=== PATIENT | female | born 1930 | race Caucasian/White ===

== ENCOUNTER 2017-12-04 20:01 | Emergency (ER) | payer MEDICARE, OTHER ==
[~2017-12-04] VITALS: Ht 154.9 cm; Wt 67.6 kg
--- NOTE | 2017-12-04 21:37 | Diagnostic Imaging Report ---
History:Fall Comparison studies: None Technique: Axial images were obtained from the skull base to the vertex. Coronal and sagittal images reconstructed from the axial data. Intravenous contrast: None Findings: Scalp/skull: No abnormalities. Extra-axial spaces: No masses. No fluid collections. Brain sulci: Mildly prominent. Ventricles: Mild compensatory dilatation. No hydrocephalus. Parenchyma: Ill defined confluent hypodensities in the supratentorial white matter are small vessel ischemic changes. No masses, hemorrhage, acute or chronic cortical vascular insults. Sellar/suprasellar region: No abnormalities. Craniocervical junction: Patent foramen magnum. No Chiari one malformation. Incidental findings: Subtle atherosclerotic calcifications in the carotid siphons and right vertebral artery. Artificial lenses in place Impression: No acute abnormalities. Chronic findings: 1. Mild generalized volume loss. 2. Moderate supratentorial white matter small vessel ischemic changes. Signed by: Dr. Joaquin Bernal M.D. on 12/04/2017 9:34 PM
--- NOTE | 2017-12-04 21:45 | Diagnostic Imaging Report ---
History: Fall Comparison studies: None Technique: Axial images were obtained through the cervical region.. Coronal and sagittal images reconstructed from the axial data.. Intravenous contrast: None Findings: Fractures: None. Soft tissues: No gross abnormalities. Atlantoaxial articulation: Mildly degenerated Alignment: Reversal of the usual lordosis centered at C5. Mild retrolisthesis of C4 on C5 is associated with 3 mm anterolisthesis of C3 on C4 and 2 mm of C7 on T1 No scoliosis. Cervicomedullary junction: No abnormalities. The foramen magnum is patent. Vertebrae: No infection or neoplasm. Degenerative changes: Severely degenerated and partially fused disc spaces from C3 to C7. Mildly degenerated at T1-T2. The facets are degenerated throughout the cervical region and fused from C2 to C5 bilaterally. Degenerative spinal canal stenosis, severe at C2-3, moderate, from C3 to C5 and severe at C5-6 and C6-7 due to disc osteophyte complexes. Foraminal stenosis is mild left at C2-3, severe at C3-4, right at C4-5, bilaterally at C5-6 and mild bilaterally at C6-7 due to facet and uncovertebral arthrosis. Incidental atherosclerotic calcifications in the carotid bulbs. IMPRESSION: 1. No acute abnormalities. No fractures. 2. Cannot adequately evaluate for ligament, spinal cord and or vascular abnormalities. 3. Extensive degenerative changes throughout the cervical region result in spinal canal and foraminal stenosis. Worst canal stenosis is severe at C2-3 and from C5 to C7. Superimposed foraminal stenosis is significant from C3 to C6. Signed by: Dr. Joaquin Bernal M.D. on 12/04/2017 9:41 PM
--- NOTE | 2017-12-04 22:09 | Diagnostic Imaging Report ---
EXAM: HIP RIGHT 2-3 VW (+/- PELVIS) INDICATION: Fall, right hip pain COMPARISON: None FINDINGS: BONES: No acute fractures. JOINTS: No malalignment. Mild degenerative changes of the sacroiliac joints and pubic symphysis and hips. SOFT TISSUES: Regional vascular calcifications IMPRESSION: No evidence of a pelvic or right hip fracture. Signed by: Dr. Lila Martines M.D. on 12/04/2017 10:06 PM
--- NOTE | 2017-12-04 22:20 | Diagnostic Imaging Report ---
EXAM: SHOULDER RIGHT COMPLETE, AP internal and external rotation INDICATION: Fall, right shoulder pain COMPARISON: None FINDINGS: BONES: Chronic deformity of the right humeral head. JOINTS: Degenerative changes of the acromioclavicular and glenohumeral joint. SOFT TISSUES: Normal IMPRESSION: No evidence of an acute right shoulder fracture. Signed by: Dr. Lila Martines M.D. on 12/04/2017 10:16 PM
== END 2017-12-04 23:57 | disposition home or self-care (01) ==
LOC: ER 20:01
DX: S00.83XA Contusion of other part of head, initial encounter (principal); M25.511 Pain in right shoulder; S70.01XA Contusion of right hip, initial encounter; W01.0XXA Fall on same level from slipping, tripping and stumbling without subsequent striking against object, initial encounter; Y93.01 Activity, walking, marching and hiking; Y92.128 Other place in nursing home as the place of occurrence of the external cause; I10 Essential (primary) hypertension; E78.5 Hyperlipidemia, unspecified; K21.9 Gastro-esophageal reflux disease without esophagitis; F41.9 Anxiety disorder, unspecified
CPT/HCPCS: 70450; 72125; 99284

== ENCOUNTER 2018-03-10 22:22 | Emergency (ER) | payer MEDICARE ==
[~2018-03-10] VITALS: Ht 154.9 cm; Wt 67.6 kg
--- OUTSIDE RECORDS SUMMARY | 2018-03-10 22:25 | XMS REPORT | Clinical Summary ---
Author Author [facility] Organization [facility] Address Unknown Phone Unavailable Care Team Providers Care Childcare Attendant Name Role Phone Cipriano Ricci MD PCP Allergies Comments Active Allergy Reactions Severity Noted Date Sulfamethoxazole-Trimetho Rash Low 01/15/2017 prim Medications End Date Status Medication Sig Dispensed Refills Start Date Active clonIDINE (CATAPRES-TTS) Place 1 patch 0 0.2 mg/24 hr on the skin once a week. Active clonIDINE HCl (CATAPRES) Take 0.2 mg 0 0.2 MG tablet by mouth 2 (two) times a day as needed for high blood pressure. Active hydroxyurea (HYDREA) 500 Take by mouth 0 mg capsule 2 (two) times a day. Active furosemide (LASIX) 20 mg Take 20 mg by 0 tablet mouth daily. Active potassium chloride Take 8 mEq by 0 (K-DUR,KLOR-CON) 10 MEQ mouth daily. CR tablet Active metoprolol tartrate Take 50 mg by 0 (LOPRESSOR) 50 mg tablet mouth 2 (two) times a day. Active felodipine (PLENDIL) 10 Take 10 mg by 0 MG 24 hr tablet mouth 2 (two) times a day. Active simvastatin (ZOCOR) 40 MG Take 40 mg by 0 tablet mouth nightly. Active omeprazole (PriLOSEC) 20 Take 20 mg by 0 MG capsule mouth daily. Active gabapentin (NEURONTIN) Take 300 mg 0 300 mg capsule by mouth 3 (three) times a day. Active acetaminophen-codeine Take 1 tablet 0 (TYLENOL WITH CODEINE #3) by mouth 3 300-30 mg per tablet (three) times a day as needed for moderate pain. Active Problems Problem Noted Date Ankle cellulitis 01/16/2017 Encounters Care Team Description Date Type Specialty Qasim Smith MD Non-pressure chronic ulcer of left ankle with fat layer exposed; Cellulitis of left foot 05/04/2017 Hospital Radiology Encounter after 03/09/2017 Social History Date Tobacco Use Types Packs/Day Years Used Never Smoker Alcohol Use Drinks/Week oz/Week Comments No Sex Assigned at Date Recorded Not on file Industry Job Start Date Occupation Not on file Not on file Not on file Travel End Travel History Travel Start No recent travel history available. 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 No visible fracture. [id number] Procedure Note Hm Interface, Radiology Results Incoming - 05/04/2017 10:04 AM TYPEWRITER ASSEMBLY AND PARTS INSPECTOR EXAMINATION: XR ANKLE 3 VW LEFT INDICATION: L97.322 Non-pressure chronic ulcer of left ankle with fat layer exposed, L03.116 Cellulitis of left lower limb COMPARISON: 01/15/2017 IMPRESSION: Marked circumferential soft tissue swelling of the ankle without evidence of visible osseous destruction to suggest underlying osteomyelitis. 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 No visible fracture. [id number] Performing Organization Address City/State/Zipcode Phone Number [facility] [address] [place] [address] after 03/09/2017 Insurance Payer Benefit Subscriber ID Type Phone Address Plan / Group MEDICARE MEDICARE xxxxxxxxxx Medicare [place], [place] PART A AND B [employer] xxxxxxxxx HMO [facility] MEDICAID MEDICAID xxxxxxxxx Medicaid
--- OUTSIDE RECORDS SUMMARY | 2018-03-10 22:25 | XMS REPORT ---
Author [facility] Address Unknown Phone Unavailable Care Team Providers Care Activity Director Name Role Phone Ronel SMITH Unavailable Unavailable Problems This patient has no known problems. Allergies, Adverse Reactions, Alerts This patient has no known allergies or adverse reactions. Medications This patient has no known medications. Results Test Description Test Time Test Comments Text Results Atomic Results Result Comments SHOULDER RIGHT COMPLETE 2017-12-04 22:06:00 [place] [address] Patient Name: ANTHONY GUIDRY MR #: [id number] : 1930 Age/Sex: 87/F Req #: [id number] Adm Physician: Ordered by: ROLAND ODONNELL MAILING MACHINE HELPER Report #: [id number] Location: ER Room/Bed: Procedure: [id number] DX/SHOULDER RIGHT COMPLETE Exam Date: Exam Time: REPORT STATUS: Signed EXAM: SHOULDER RIGHT COMPLETE, AP internal and external rotation INDICATION: Fall, right shoulder pain COMPARISON: None FINDINGS: BONES: Chronic deformity of the right humeral head. JOINTS: Degenerative changes of the acromioclavicular and glenohumeral joint. SOFT TISSUES: Normal IMPRESSION: No evidence of an acute right shoulder fracture. Signed by: Dr. Raphael Martines M.D. on 12/04/2017 10:16 PM Dictated By: RAPHAEL MARTINES MD 15 Transcribed By: LUCIANO on 12/04/172215 COPY TO: ROLAND ODONNELL NP HIP RIGHT 2-3 VW (+/- PELVIS) 2017-12-04 22:04:00 [place] [address] Patient Name: ANTHONY GUIDRY MR #: [id number] : 1930 Age/Sex: 87/F Req #: [id number] Adm Physician: Ordered by: ROLAND ODONNELL NP Report #: [id number] Location: ER Room/Bed: Procedure: [id number] DX/HIP RIGHT 2-3 VW (+/- PELVIS) Exam Date: Exam Time: REPORT STATUS: Signed EXAM: HIP RIGHT 2-3 VW (+/- PELVIS) INDICATION: Fall, right hip pain COMPARISON: None FINDINGS: BONES: No acute fractures. JOINTS: No malalignment. Mild degenerative changes of the sacroiliac joints and pubic symphysis and hips. SOFT TISSUES: Regional vascular calcifications IMPRESSION: No evidence of a pelvic or right hip fracture. Signed by: Dr. Raphael Martines M.D. on 12/04/2017 10:06 PM Dictated By: RAPHAEL MARTINES MD 05 Transcribed By: LUCIANO on 12/04/172205 COPY TO: ROLAND ODONNELL NP CT CERVICAL SPINE WO 2017-12-04 21:34:00 [place] [address] Patient Name: ANTHONY GUIDRY MR #: [id number] : 1930 Age/Sex: 87/F Req #: [id number] [facility] Physician: Ordered by: ROLAND ODONNELL NP Report #: [id number] Location: ER Room/Bed: Procedure: [id number] CT/CT CERVICAL SPINE WO Exam Date: 12/04/17 Exam Time: 2114 REPORT STATUS: Signed ADDENDUM #1 Dose modulation, iterative reconstruction, and/or weight based adjustment of the mA/kV was utilized to reduce the radiation dose to as low as reasonably achievable. Signed by: Dr. Joaquin Bernal M.D. on 12/19/2017 9:37 AM ORIGINAL REPORT History: Fall Comparison studies: None Technique: Axial images were obtained through the cervical region.. Coronal and sagittal images reconstructed from the axial data.. Intravenous contrast: None Findings: Fractures: None. Soft tissues: No gross abnormalities. Atlantoaxial articulation: Mildly degenerated Alignment: Reversal of the usual lordosis centered at C5. Mild retrolisthesis of C4 on C5 is associated with 3 mm anterolisthesis of C3 on C4 and 2 mm of C7 on T1 No scoliosis. Cervicomedullary junction: No abnormalities. The foramen magnum is patent. Vertebrae: No infection or neoplasm. Degenerative changes: Severely degenerated and partially fused disc spaces from C3 to C7. Mildly degenerated at T1-T2. The facets are degenerated throughout the cervical region and fused from C2 to C5 bilaterally. Degenerative spinal canal stenosis, severe at C2- 3, moderate, from C3 to C5 and severe at C5-6 and C6-7 due to disc osteophyte complexes. Foraminal stenosis is mild left at C2-3, severe at C3-4, right at C4-5, bilaterally at C5-6 and mild bilaterally at C6-7 due to facet and uncovertebral arthrosis. Incidental atherosclerotic calcifications in the carotid bulbs. IMPRESSION: 1. No acute abnormalities. No fractures. 2. Cannot adequately evaluate for ligament, spinal cord and or vascular abnormalities. 3. Extensive degenerative changes throughout the cervical region result in spinal canal and foraminal stenosis. Worst canal stenosis is severe at C2-3 and from C5 to C7. Superimposed foraminal stenosis is significant from C3 to C6. Signed by: Dr. Joaquin Bernal M.D. on 12/04/2017 9:41 PM Dictated By: JOAQUIN BERNAL MD, MD Transcribed By: LUCIANO on 12/04/172140 COPY TO: ROLAND ODONNELL NP CT BRAIN WO 2017-12-04 21:31:00 [place] [address] Patient Name: ANTHONY GUIDRY MR #: [id number] : 1930 Age/Sex: 87/F Req #: [id number] [facility] Physician: Ordered by: ROLAND ODONNELL NP Report #: [id number] Location: Room/Bed: Procedure: [id number] CT/CT BRAIN WO Exam Date: 12/04/17 Exam Time: 2114 REPORT STATUS: Signed ADDENDUM #1 Dose modulation, iterative reconstruction, and/or weight based adjustment of the mA/kV was utilized to reduce the radiation dose to as low as reasonably achievable. Signed by: Dr. Joaquin Bernal M.D. on 12/19/2017 9:37 AM ORIGINAL REPORT History:Fall Comparison studies: None Technique: Axial images were obtained from the skull base to the vertex. Coronal and sagittal images reconstructed from the axial data. Intravenous contrast: None Findings: Scalp/skull: No abnormalities. Extra-axial spaces: No masses. No fluid collections. Brain sulci: Mildly prominent. Ventricles: Mild compensatory dilatation. No hydrocephalus. Parenchyma: Ill defined confluent hypodensities in the supratentorial white matter are small vessel ischemic changes. No masses, hemorrhage, acute or chronic cortical vascular insults. Sellar/suprasellar region: No abnormalities. Craniocervical junction: Patent foramen magnum. No Chiari one malformation. Incidental findings: Subtle atherosclerotic calcifications in the carotid siphons and right vertebral artery. Artificial lenses in place Impression: No acute abnormalities. Chronic findings: 1. Mild generalized volume loss. 2. Moderate supratentorial white matter small vessel ischemic changes. Signed by: Dr. Joaquin Bernal M.D. on 12/04/2017 9:34 PM Dictated By: JOAQUIN BERNAL MD, MD [id number] Transcribed By: LUCIANO on 12/04/17 7689 COPY TO: ROLAND ODONNELL NP
--- NOTE | 2018-03-10 23:28 | Diagnostic Imaging Report ---
EXAMINATION: Head CT without contrast. HISTORY:Status post fall. COMPARISON:CT brain from 12/04/2017. TECHNIQUE: Multidetector axial images were obtained from the foramen magnum to the vertex without contrast. The images were reconstructed using brain and bone algorithms. Thin section brain images were reformatted into coronal and sagittal planes. Dose modulation, iterative reconstruction, and/or weight based adjustment of the mA/kV was utilized to reduce the radiation dose to as low as reasonably achievable. Intravenous contrast: None IMAGE QUALITY: Acceptable. FINDINGS: Skull/scalp: Mild left posterior parietal scalp edema/hematoma. No soft tissue emphysema or radiopaque foreign body. No acute depressed or displaced calvarial fracture. Parenchyma: Nonspecific bilateral frontoparietal confluent periventricular and patchy subcortical white matter hypodensity are likely related to small vessel ischemic changes. No acute hemorrhage, mass or acute major vascular territorial infarct. Arteries: No density suggestive of thrombosis. Atherosclerotic calcification in bilateral carotid siphon. Dural sinuses: No abnormal density suggestive of thrombosis. Ventricles: No hydrocephalus or displacement. Extra-axial spaces: No abnormal density. Brain volume: Normal for age. Craniocervical junction: No mass, Chiari malformation, or basilar invagination. Sella: No mass. Paranasal/mastoid sinuses: Imaged portions unremarkable. IMPRESSION: 1. Mild left posterior parietal scalp edema/hematoma. No acute fracture. 2. No acute posttraumatic intracranial abnormality. Chronic findings: 1. Moderate supratentorial white matter small vessel ischemic changes. 2. Generalized age-related cerebral volume loss. Signed by: Dr. Bisi Roberto M.D. on 03/10/2018 11:24 PM
--- NOTE | 2018-03-10 23:36 | Diagnostic Imaging Report ---
History: Status post fall. Comparison studies: CT cervical spine from 12/04/2017. Technique: Axial images were obtained through the cervical region.. Coronal and sagittal images reconstructed from the axial data. Dose modulation, iterative reconstruction, and/or weight based adjustment of the mA/kV was utilized to reduce the radiation dose to as low as reasonably achievable. Intravenous contrast: None Findings: Fractures: .None Soft tissue injuries: None. Atlantoaxial articulation: Intact. Alignment: Reversal of normal cervical lordosis likely due to degenerative changes. No scoliosis. 1.5 mm grade 1 anterolisthesis at C3-C4, 2 mm grade 1 retrolisthesis at C5-C6 and 1.7 mm anterolisthesis at C7-T1. Cervicomedullary junction: No abnormalities. The foramen magnum is patent. Soft tissues: No abnormalities. Hypodense nodules in bilateral lobes of thyroid gland (measures approximately 6.4 mm on the right and 7 mm on the left). Vertebrae: Osseous fusion of bilateral posterior elements from level C3-C5. No fractures, infection or neoplasm. Degenerative changes: Moderate degenerative changes in the anterior atlantodental joint. C2-C3: Posterior disc osteophyte complex results in mild to moderate to severe canal stenosis. Mild left foraminal stenosis due to facet and uncovertebral arthrosis. C3-C4: Severe degenerative disc disease. Posterior disc osteophyte complex without canal stenosis. Severe right and moderate left foraminal stenosis due to facet and uncovertebral arthrosis. C4-C5: Severe degenerative disc disease. Posterior disc osteophyte complex without canal stenosis. Degenerative endplate changes and subchondral cyst along the inferior endplate of C4. Severe right and moderate left foraminal stenosis due to facet and uncovertebral arthrosis. C5-C6: Severe degenerative disc disease. Posterior disc osteophyte complex results in moderate to severe canal stenosis. Bilateral severe foraminal stenosis due to facet and uncovertebral arthrosis. C6-C7: Severe degenerative disc disease. Posterior disc osteophyte complex results in mild canal stenosis. Moderate right and severe left foraminal stenosis due to facet and uncovertebral arthrosis. C7-T1: Severe left foraminal stenosis due to facet and uncovertebral arthrosis. IMPRESSION: 1. No acute cervical spine fracture. Reversal of normal cervical lordosis is likely due to degenerative changes or muscle spasm. 2. Ligament, spinal cord and or vascular abnormalities cannot be excluded on the basis of this examination. 3. Advanced cervical spondylosis as detailed above. Signed by: Dr. Bisi Roberto M.D. on 03/10/2018 11:33 PM
== END 2018-03-11 00:49 | disposition home or self-care (01) ==
LOC: ER 22:22
DX: S00.83XA Contusion of other part of head, initial encounter (principal); W01.0XXA Fall on same level from slipping, tripping and stumbling without subsequent striking against object, initial encounter; Y92.128 Other place in nursing home as the place of occurrence of the external cause; Z91.81 History of falling; I10 Essential (primary) hypertension; E78.5 Hyperlipidemia, unspecified; F41.9 Anxiety disorder, unspecified; K21.9 Gastro-esophageal reflux disease without esophagitis
CPT/HCPCS: 70450; 72125; 99283

== ENCOUNTER 2018-03-24 14:42 | Inpatient (IN) | payer MEDICARE ==
[~2018-03-24] VITALS: Ht 154.9 cm; Wt 55.1 kg
--- OUTSIDE RECORDS SUMMARY | 2018-03-24 14:46 | XMS REPORT | Clinical Summary ---
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 No visible fracture. [id number] Procedure Note Hm Interface, Radiology Results Incoming - 05/04/2017 10:04 AM AIRLINE LOUNGE RECEPTIONIST EXAMINATION: XR ANKLE 3 VW LEFT INDICATION: L97.322 Non-pressure chronic ulcer of left ankle with fat layer exposed, L03.116 Cellulitis of left lower limb COMPARISON: 01/15/2017 IMPRESSION: Marked circumferential soft tissue swelling of the ankle without evidence of visible osseous destruction to suggest underlying osteomyelitis. 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 No visible fracture. [id number] Performing Organization Address City/State/Zipcode Phone Number [facility] [address] [place] [address] after 03/23/2017 Insurance Payer Benefit Subscriber ID Type Phone Address Plan / Group MEDICARE MEDICARE xxxxxxxxxx Medicare [place], [place] PART A AND B [employer] xxxxxxxxx [facility]
[2018-03-24] MEDS ORDERED: SODIUM CHLORIDE 0.9% 1000ML 1,000 ML IV STA (14:54)
[2018-03-24] MEDS ORDERED: ONDANSETRON HCL INJ 2 MG/ML VIAL IV ONE ×2 (15:00→19:30)
[2018-03-24 15:18] LABS: BASOPHILS % 0.5 % (0.0-1.0); EOSINOPHILS # (AUTO) 0.2 (0.0-0.4); EOSINOPHILS % 2.4 % (0.0-6.0); HEMATOCRIT 30.6 % (34.2-44.1); HEMOGLOBIN 10.7 g/dL (12.0-16.0); LYMPHOCYTES # (AUTO) 0.5 (1.0-3.2); LYMPHOCYTES % 8.8 % (18.0-39.1); MEAN CORPUSCULAR HEMOGLOBIN 40.1 pg (28-32); MEAN CORPUSCULAR VOLUME 114.6 fL (81-99); MONOCYTES # (AUTO) 0.6 (0.2-0.8); NEUTROPHILS # (AUTO) 4.8 (2.1-6.9); NEUTROPHILS % 77.7 % (38.7-80.0); PLATELET COUNT 396 x10e3/uL (140-360); RED BLOOD COUNT 2.67 x10e6/uL (3.6-5.1); RED CELL DISTRIBUTION WIDTH 15.2 % (11.7-14.4)
[2018-03-24 15:36] LABS: ALBUMIN 3.9 g/dL (3.5-5.0); ALBUMIN/GLOBULIN RATIO 1.2 (0.8-2.0); ANION GAP 14.9 mmol/L (8-16); CALCIUM 9.9 mg/dL (8.4-10.2); POTASSIUM 3.9 mmol/L (3.5-5.1)
[2018-03-24 15:42] LABS: CREATINE KINASE MB 2.4 ng/mL (0-5.0)
[2018-03-24 15:59] LABS: BILIRUBIN,URINE NEGATIVE (NEGATIVE); CLARITY,URINE CLEAR (CLEAR); COLOR,URINE YELLOW (YELLOW); KETONES,URINE NEGATIVE (NEGATIVE); LEUKOCYTE ESTERASE ,URINE NEGATIVE (NEGATIVE); NITRITE,URINE NEGATIVE (NEGATIVE); PROTEIN,URINE DIPSTICK NEGATIVE (NEGATIVE); URINE UROBILINOGEN 0.2 mg/dL (0.2 - 1)
--- OUTSIDE RECORDS SUMMARY | 2018-03-24 17:14 | XMS REPORT | Clinical Summary ---
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 No visible fracture. [id number] Procedure Note Hm Interface, Radiology Results Incoming - 05/04/2017 10:04 AM CIVIL ENGINEERING DESIGNER EXAMINATION: XR ANKLE 3 VW LEFT INDICATION: L97.322 Non-pressure chronic ulcer of left ankle with fat layer exposed, L03.116 Cellulitis of left lower limb COMPARISON: 01/15/2017 IMPRESSION: Marked circumferential soft tissue swelling of the ankle without evidence of visible osseous destruction to suggest underlying osteomyelitis. 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 No visible fracture. [id number] Performing Organization Address City/State/Zipcode Phone Number [facility] [address] [place] [address] after 03/23/2017 Insurance Payer Benefit Subscriber ID Type Phone Address Plan / Group MEDICARE MEDICARE xxxxxxxxxx Medicare [place], [place] PART A AND B [employer] xxxxxxxxx [facility]
--- NOTE | 2018-03-24 17:55 | Diagnostic Imaging Report ---
Exam: Head CT without contrast History: Nausea, vomiting, confusion Comparison studies: Head CT of 03/10/2018 and 12/04/2017. Technique: Axial images were obtained from the skull base to the vertex. Coronal and sagittal images reconstructed from the axial data. Dose modulation, iterative reconstruction, and/or weight based adjustment of the mA/kV was utilized to reduce the radiation dose to as low as reasonably achievable. Radiation dose: Total DLP: 947 mGy*cm. Estimated effective dose: DLP x 0.015 Intravenous contrast: None Findings: Scalp: No abnormalities. Bones: No fractures, blastic or lytic lesions. Brain sulci: Mildly prominent. Ventricles: Compensatory dilatation. No hydrocephalus. Extra-axial spaces: No masses, no fluid collection. Parenchyma: No mass, acute hemorrhage or acute or chronic cortical vascular insults. Ill-defined and confluent hypodensities in the supratentorial white matter are nonspecific but most compatible with chronic microvascular ischemic changes. Sellar/suprasellar region: No abnormalities. Craniocervical junction: Patent foramen magnum. No Chiari one malformation. Incidental findings: Intraocular lens replacement for previous cataract surgery Atherosclerotic calcifications in the carotid siphons and intradural vertebral arteries. IMPRESSION: 1. No acute intracranial abnormalities. 2. Left parietal scalp swelling has decreased. 3. No other changes from the previous head CT of 03/10/2018. 4. Mild generalized volume loss with moderate chronic microvascular ischemic changes. Signed by: Dr. Demario Zamorano M.D. on 03/24/2018 5:52 PM
[2018-03-24] MEDS: SODIUM CHLORIDE 0.9% 1000ML 1,000 ML IV SCH (17:59)
--- NOTE | 2018-03-24 18:45 | Diagnostic Imaging Report ---
EXAM: CT Abdomen and Pelvis WITH contrast INDICATION: Nausea and vomiting. ^ORDER PLACED BY ^[id number] ^[id number] COMPARISON: None. TECHNIQUE: Abdomen and pelvis were scanned utilizing a multidetector helical scanner from the lung base to the pubic symphysis after administration of IV contrast. Coronal and sagittal reformations were obtained. Dose modulation, iterative reconstruction, and/or weight based adjustment of the mA/kV was utilized to reduce the radiation dose to as low as reasonably achievable. Routine protocol was performed. Scan was performed when during portal venous phase. IV CONTRAST: 100 mL of Isovue-370 ORAL CONTRAST: Water COMPLICATIONS: None RADIATION DOSE: Total DLP: 203.06 mGy*cm Estimated effective dose: (DLP x 0.015 x size factor) mSv CTDIvol has been reviewed. It is below the limits set by the Radiation Protocol Committee (RPC). FINDINGS: LINES and TUBES: Mott catheter. LOWER THORAX: Focal cluster of tiny nodules versus tree-in-bud opacities in right base (Series 2, image 5). HEPATOBILIARY: No focal hepatic lesions. No biliary ductal dilation. GALLBLADDER: No radio-opaque stones or sludge. No wall thickening. SPLEEN: No splenomegaly. PANCREAS: No focal masses or ductal dilatation. ADRENALS: No adrenal nodules KIDNEYS/URETERS: Kidneys enhance symmetrically. No hydronephrosis. Mild cortical thinning of the left kidney. Right renal inferior pole 1.8 cm hypodensity with internal attenuation greater than simple fluid. Additional subcentimeter hypodensities are too small to characterize. No stones. GI TRACT: No abnormal distention, wall thickening, or evidence of bowel obstruction. There are diverticula within the colon without evidence of diverticulitis. Small to moderate size hiatal hernia. Appendix is not clearly visualized. PELVIC ORGANS/BLADDER: Hysterectomy. Bladder is not distended with a Mott catheter in place and intravesical air. LYMPH NODES: No lymphadenopathy. VESSELS: There is severe atherosclerotic disease in the aorta and major arterial branches. Tortuous abdominal aorta. The splenic artery is markedly tortuous and atherosclerotic. PERITONEUM / RETROPERITONEUM: No free air or fluid. BONES: There are degenerative changes in the lumbar spine. Changes. There is grade 1 retrolisthesis of L5 in relation to L4. Loss of L1-L2 disc space. SOFT TISSUES: Unremarkable. IMPRESSION: 1. No definite evidence of acute inflammatory process in the abdomen/pelvis. 2. 1.8 cm right renal inferior pole hypodense lesion, could represent a complex cyst. Recommend further evaluation with nonurgent renal ultrasound. 3. Severe arteriosclerosis. 4. Moderate size hiatal hernia. 5. Few adjacent tiny right base nodules versus tree-in-bud opacities. If clinically indicated, follow-up chest CT can be obtained in 3 months to evaluate for changes. Signed by: Dr. Eric Kitchen MD on 03/24/2018 6:41 PM
[2018-03-24] MEDS ORDERED: FELODIPINE ER10 MG PO (18:50)
[2018-03-24] MEDS ORDERED: TYLENOL # 31 EA PO (18:50)
[2018-03-24] MEDS ORDERED: SIMVASTATIN40 MG PO (18:50)
[2018-03-24] MEDS ORDERED: SERTRALINE HCL50 MG PO (18:50)
[2018-03-24] MEDS ORDERED: ULTRAM 50MG50 MG PO (18:50)
[2018-03-24] MEDS ORDERED: CLONIDINE HCL0.2 MG PO (18:50)
[2018-03-24] MEDS ORDERED: AMLODIPINE BES2.5 MG PO (18:50)
[2018-03-24] MEDS ORDERED: HYDROXYUREA500 MG PO (18:50)
[2018-03-24] MEDS ORDERED: FUROSEMIDE40 MG PO (18:50)
[2018-03-24] MEDS ORDERED: ALPRAZOLAM0.5 MG PO (18:50)
[2018-03-24] MEDS ORDERED: HYDRALAZINE HCL25 MG PO (18:50)
[2018-03-24] MEDS ORDERED: QUETIAPINE FUMA25 MG PO (18:50)
[2018-03-24] MEDS ORDERED: LOW DOSE ASPIRI81 MG PO (18:50)
[2018-03-24] MEDS ORDERED: GABAPENTIN300 MG PO (18:50)
[2018-03-24] MEDS: CLONIDINE HCL 0.2 MG TAB PO PRN (19:05)
[2018-03-24] MEDS ORDERED: ONDANSETRON HCL INJ 2 MG/ML VIAL ONE (19:20)
[2018-03-24] MEDS ORDERED: HYDRALAZINE HCL 20 MG/ML VIAL IV ONE (19:30)
[2018-03-24 19:50] VITALS: BP 140/64
[2018-03-24 20:30] VITALS: BP 140/68
[2018-03-24 21:00] VITALS: BP 140/68
[2018-03-24] MEDS ORDERED: SODIUM CHLORIDE 0.9% 50ML 50 ML ONE (22:14)
[2018-03-24] MEDS ORDERED: IOPAMIDOL 370 MG/ML 200 ML INFUS..BTL INJ ONE (22:15)
[2018-03-24] MEDS: ONDANSETRON HCL INJ 2 MG/ML VIAL IV PRN (22:44)
[2018-03-24] MEDS: LORAZEPAM INJ 2 MG/ML VIAL IV PRN (23:14)
[2018-03-25] VITALS (7 sets, daily range): BP systolic 124–175; BP diastolic 58–76
[2018-03-25] MEDS: SODIUM CHLORIDE 0.9% 1000ML 1,000 ML IV SCH ×2 (03:25→13:25)
[2018-03-25 03:26] LABS: CREATINE KINASE MB 1.1 ng/mL (0-5.0)
[2018-03-25 05:59] LABS: BASOPHILS % 0.8 % (0.0-1.0); EOSINOPHILS # (AUTO) 0.1 (0.0-0.4); HEMATOCRIT 25.4 % (34.2-44.1); LYMPHOCYTES # (AUTO) 0.4 (1.0-3.2); LYMPHOCYTES % 9.6 % (18.0-39.1); MEAN CORPUSCULAR HEMOGLOBIN 41.7 pg (28-32); MEAN CORPUSCULAR HGB CONC 35.4 g/dL (31-35); MEAN CORPUSCULAR VOLUME 117.6 fL (81-99); MONOCYTES # (AUTO) 0.4 (0.2-0.8); MONOCYTES % 10.9 % (4.4-11.3); NEUTROPHILS % 76.2 % (38.7-80.0); PLATELET COUNT 318 x10e3/uL (140-360); RED BLOOD COUNT 2.16 x10e6/uL (3.6-5.1)
[2018-03-25 06:19] LABS: ALBUMIN 3.1 g/dL (3.5-5.0); ALBUMIN/GLOBULIN RATIO 1.1 (0.8-2.0); ANION GAP 12.2 mmol/L (8-16); CALCIUM 8.8 mg/dL (8.4-10.2); CREATININE, SERUM 0.89 mg/dL (0.57-1.11); POTASSIUM 3.2 mmol/L (3.5-5.1)
[2018-03-25] MEDS: CLONIDINE HCL 0.2 MG TAB PO PRN (06:19)
[2018-03-25 06:48] LABS: CREATINE KINASE MB 0.9 ng/mL (0-5.0)
[2018-03-25 07:29] LABS: ANISOCYTOSIS MODERATE; EOSINOPHILS % (MANUAL) 2 % (0-7); LYMPHOCYTES % (MANUAL) 11 % (19-48); MONOCYTES % (MANUAL) 8 % (3.4-9.0); NEUTROPHILS % (MANUAL) 79 % (40-74)
[2018-03-25 07:30] LABS: PLATELET ESTIMATE ADEQUATE; PLATELET MORPHOLOGY COMMENT NORMAL; RBC MORPHOLOGY COMMENT ABNORMAL
[2018-03-25] MEDS ORDERED: ACETAMINOPHEN/CODEINE 300MG - 30MG TAB PO PRN (10:00)
[2018-03-25] MEDS ORDERED: ZIPRASIDONE 20 MG VIAL IM PRN (10:00)
[2018-03-25] MEDS ORDERED: ALBUTEROL/IPRATROPIUM 3 ML NEB NEB PRN (10:00)
[2018-03-25] MEDS: AZITHROMYCIN 250MG/NS 100 ML 100 ML IV SCH (11:11)
[2018-03-25 11:44] LABS: FREE THYROXINE INDEX 2.4667 (1.4-3.8); THYROID STIMULATING HORMONE 0.705 uIU/mL (0.350-4.940)
[2018-03-25] MEDS: PIPER-TAZ 3.375 GM 50 ML IV SCH ×2 (12:12→16:57)
[2018-03-25] MEDS: ALBUTEROL/IPRATROPIUM 3 ML NEB NEB SCH ×2 (13:00→18:50)
--- NOTE | 2018-03-25 15:41 | Consultation ---
DATE OF CONSULTATION: March 25, 2018 NEUROLOGY CONSULT NOTE HISTORY OF PRESENT ILLNESS: Ms. Richard is an 87-year-old woman with past medical history significant for hypertension, hyperlipidemia, multiple urinary tract infections and underlying psychiatric disorder, for which she has been hospitalized in inpatient psychiatric facilities twice in her lifetime, and dementia, admitted to [facility] on March 24, 2018 with worsening confusion. When asked why she is here, Ms. Richard reports only that she is here because she has "some issues." According to the patient's family members who are at the bedside, Ms. Richard has been irritable and angry for the past 2 weeks. These mood symptoms coincide with the of her of 75 years approximately 2 weeks ago. For the past week, the patient has been confused. When questioned further, the confusion endorsed by the patient's family is more compatible with paranoid delusions (i.e., someone is coming to take me to residential, the staff at my skilled nursing are trying to put me in the psych hernandez, etc). At baseline, Ms. Richard is oriented to person and place. She is rarely oriented to time. According to her family members, the patient does not have any difficulty recalling the names of family members and close friends. There are, and have been, some problems with misplacement of items and repetition. Ms. Richard is a skilled nursing resident. Therefore, she is not responsible for cleaning, preparing meals, laundering her cloths or linens, etc. The patient no longer drives. She has not driven for approximately 10 years. Ms. Richard reportedly stopped driving after becoming lost in a familiar area. Ms. Richard does not manage her own finances or schedule appointments for herself. These activities are performed by family members. Patient's [id number] does report some difficulty with administering medications. Ms. Richard has a habit of pretending to take her medications, then subsequently hiding them. Ms. Richard was diagnosed with dementia in approximately 2006. She is not now, nor has she ever been, on any medications to treat her dementia. Within the last 1 to 2 weeks, multiple adjustments and additions have been made to the patient's psychotropic medications. According to her family members, the dose of Xanax was recently increased, the dose of Zoloft was recently increased, and the patient was prescribed Seroquel to improve her sleep. REVIEW OF SYSTEMS: Unable to assess secondary to the patient being encephalopathic. PAST MEDICAL HISTORY: Hypertension, hyperlipidemia, arthritis, multiple urinary tract infections, gastroesophageal reflux disease, hiatal hernia, diverticulosis, anxiety disorder, dementia, peripheral vascular disease, possible peripheral neuropathy. PAST SURGICAL HISTORY: Bilateral knee replacements, total hysterectomy, bilateral cataract removal, and appendectomy. PRIOR HOSPITALIZATIONS: Ms. Richard has had 2 emergency center visits within the past year for falls, surgeries/procedures as listed, congestive heart failure and pneumonia in late 2005/early 2006, infection of the left foot/ankle, multiple urinary tract infections, childbirth x3. Ms. Richard has been hospitalized in an inpatient psychiatric facility twice, once in the , and again in 2006. In each instance, she was hospitalized for approximately 3 to 4 weeks. FAMILY MEDICAL HISTORY: The patient's paternal and maternal grandparents are . Their medical histories are unknown. The patient's father is from pneumonia. Her mother is from gastrointestinal cancer. The patient had 3 siblings, all of whom are . One brother had posttraumatic stress disorder. The second brother's medical history is unknown. The patient's sister, who several weeks ago, had a hip fracture and pneumonia. Ms. Richard had 3 children, 2 sons and 1 daughter. One son is from colon cancer. The second son is alive, but has hypertension, hyperlipidemia, gout, and peripheral neuropathy. The patient's daughter is alive and healthy. SOCIAL HISTORY: Ms. Richard is recently . She is a skilled nursing resident. The patient is retired. She does not report current or prior tobacco, alcohol, or recreational drug use. HOME MEDICATIONS 1. Acetaminophen/codeine 1 tablet by mouth twice daily as needed for pain. 2. Alprazolam 0.5 mg by mouth daily as needed for anxiety. 3. Amlodipine besylate 2.5 mg by mouth daily. 4. Aspirin 81 mg by mouth daily. 5. Clonidine 0.02 mg by mouth twice daily as needed. 6. Felodipine 10 mg by mouth daily. 7. Furosemide 40 mg by mouth daily. 8. Gabapentin 300 mg by mouth twice daily. 9. Hydralazine 25 mg by mouth 3 times daily. 10. Hydroxyurea 500 mg by mouth daily. 11. Quetiapine 25 mg by mouth at bedtime daily. 12. Sertraline 50 mg by mouth daily. 13. Simvastatin 40 mg by mouth daily. 14. Tramadol 50 mg by mouth daily as needed for pain. ALLERGIES: BACTRIM. NO KNOWN FOOD ALLERGIES. NO KNOWN ALLERGIES TO LATEX. NO KNOWN ALLERGIES TO IODINE OR OTHER CONTRAST MATERIALS. PHYSICAL EXAMINATION VITAL SIGNS: Height 61 inches, weight 149 pounds, BMI 28.2 kg/m2. Blood pressure 151/70 mmHg, pulse 57 beats per minute, respiratory rate 18 breaths per minute, oxygen saturation 95% on room air. GENERAL: The patient is awake and alert, does not appear distressed. Overweight. HEENT: Normocephalic, atraumatic. Pupils are surgical. Moist mucous membranes. NECK: Supple. No appreciable thyromegaly. No appreciable carotid bruits. CARDIOVASCULAR: S1 and S2, regular rate and rhythm. No murmurs, rubs, or gallops. RESPIRATORY: Clear to auscultation bilaterally. No wheezes, rhonchi, or rales. EXTREMITIES: The skin is warm and dry. No clubbing, cyanosis, or edema. The posterior tibial and dorsalis pedis pulses are 1+ and symmetric. SKIN: There are wounds surrounding the left ankle. NEUROLOGIC: Memory/Attention: The patient is awake and alert, oriented to person, place (hospital, city, county, state), but not time or situation. Cranial Nerves: Cranial nerve I - not tested. Cranial nerve II, III, IV, and - pupils are surgical. Extraocular movements intact. No nystagmus. Cranial nerve V - sensation to light touch is intact in the bilateral V1 through V3 distributions. Strength of the temporalis and masseter muscles is within normal limits. Cranial nerve VII - the face is symmetric as are all facial movements. Strength is within normal limits. Cranial nerve VIII - hearing is intact to finger rub bilaterally. Cranial nerve IX, X - the soft palate elevates equally and symmetrically. Cranial nerve XI - normal strength of the bilateral sternocleidomastoid and trapezius muscles. Cranial nerve XII - the tongue protrudes midline and moves symmetrically from side to side. Strength: Bulk is diminished throughout. There are normal functional movements of both arms and both legs. Strength is grossly 4+to 5/5. Tone is normal. DTRs: Deep tendon reflexes are 1+ and symmetric at the triceps, biceps, brachioradialis, and patellas. Deep tendon reflexes are absent and symmetric at the Achilles. Plantar responses are flexor bilaterally. Sensation: Sensation is intact to light touch in both arms and both legs. Cerebellar: Unable to assess secondary to the patient being encephalopathic. Gait: Deferred. Speech: Spontaneous speech is normal without appreciable dysarthria or aphasia. Repetition is intact. Involuntary Movements: None. Pronator Drift: None. LABORATORY DATA: The patient's most recent comprehensive metabolic panel is significant for a decreased potassium level of 3.2, a decreased total protein level of 5.8, and a decreased albumin of 3.1. Lactic acid 5.9. Creatine kinase 288, 175, 157. CK-MB 2.40, 1.10, 0.90. Troponin-I 0.023, 0.026, 0.026. The CBC with differential and platelets reveals a white blood cell count of 3.96 with 76.2% neutrophils, 9.6% lymphocytes, 10.9% monocytes, 2.0% eosinophils, and 0.8% basophils. The hemoglobin and hematocrit are 9.0 and 25.4, respectively. The platelet count is 318. A urinalysis was unremarkable. Influenza types A, B antigen negative. DIAGNOSTIC STUDIES: Electrocardiogram, 03/24/2018: Normal sinus rhythm at [address] of the brain without contrast, 03/24/2018: On my review, there is no evidence of recent large territorial ischemia, hemorrhage, mass, or mass effect. There is diffuse cerebral atrophy with compensatory dilatation of the ventricles, slightly more than expected for age. There are findings compatible with [id number] chronic small vessel ischemic disease. CT of the abdomen/pelvis, 03/24/2018: 1. No definite evidence of acute inflammatory process in the abdomen/pelvis. 2. A 1.8 cm right renal inferior pole hyperdense lesion, could represent a complex cyst. Recommend further evaluation with nonurgent renal ultrasound. 3. Severe arteriosclerosis. 4. Moderate-sized hiatal hernia. 5. Few adjacent tiny right base nodules versus tree-in-bud opacities. If clinically indicated, followup chest CT can be obtained in 3 months to evaluate for changes. ASSESSMENT AND PLAN: Ms. Richard is an 87-year-old woman with an extensive past medical history, including a prior diagnosis of dementia made approximately 10 years ago, admitted from her skilled nursing with encephalopathy of unknown etiology. On neurological examination, the patient is disoriented to time and situation; however, according to her family members, this is more or less the patient's baseline. Otherwise, there are no focal findings on the patient's neurological examination. Ms. Baker laboratory data and other diagnostic studies have been reviewed and are documented above. Ms. Baker encephalopathy is probably multifactorial. Firstly, the patient has a known diagnosis of dementia. There has been worsening of her baseline confusion, more specifically her paranoid delusions, over the past 2 weeks. Contributing to this worsening the patient's neurological baseline, is possible pneumonia. This is based on the findings on the CT of the abdomen/pelvis and my discussion with primary attending, Dr. Smith. Dr. Smith has prescribed intravenous antibiotics and ordered a CT of the chest for further evaluation for pneumonia. Other possible factors contributing to dose worsening from the patient's neurological baseline is the recent of her and delirium. RECOMMENDATIONS: As follows: 1. Laboratory data will be ordered as follows: Thyroid function test, an ammonia level, vitamin B1 level, vitamin B12 level, rapid plasma reagin, and a urine culture. These labs will be ordered to assess for other possible causes of the patient's worsening encephalopathy. 2. Limit treatment with sedative/hypnotic and pain medications as these will alter the patient's sensorium. To that end, treatment with Tylenol No. 3 has been discontinued. Treatment with tramadol will be continued on an as needed basis. Treatment with gabapentin will be continued, but the dose will be decreased to 100 mg by mouth twice daily. At present, treatment with the patient's current psychotropic medications will be continued. 3. Utilize environmental cues to limit delirium. 4. Defer treatment of the remaining medical comorbidities to the primary and other services following the patient. Thank you for this consultation. I will continue to follow the patient while she remains in the hospital. TIME SPENT: 70 minutes. Job#: [id number] RADHA RAMIREZ
[2018-03-25] MEDS: HYDRALAZINE HCL 25 MG TAB PO SCH ×2 (15:59→22:00)
[2018-03-25] MEDS: GABAPENTIN 300 MG CAP PO SCH (16:56)
[2018-03-25] MEDS ORDERED: GABAPENTIN 300 MG CAP PO SCH (17:00)
--- NOTE | 2018-03-25 20:28 | Diagnostic Imaging Report ---
EXAM: CT CHEST WO INDICATION: Shortness of breath COMPARISON: None TECHNIQUE: Multidetector CT scanning of the chest was performed. Coronal and sagittal multiplanar reformations were obtained. Dose modulation, iterative reconstruction, and/or weight based adjustment of the mA/kV was utilized to reduce the radiation dose to as low as reasonably achievable. Routine protocol performed. IV Contrast: None CTDIvol has been reviewed. It is below the limits set by the Radiation Protocol Committee (RPC). FINDINGS: LUNGS AND AIRWAYS: The trachea and major bronchi are unremarkable. No consolidations or edema. Lobulated 1.2 x 0.8 cm nodule in the right upper lung with adjacent smaller nodules. Additional sites of tiny centrilobular nodules in the periphery of the right upper lung and right lower lobe. Right middle lobe atelectasis. PLEURA: No effusions or pneumothorax. HEART, MEDIASTINUM, VESSELS: The heart is within normal size limits. Calcifications of the coronary artery, aortic annulus and thoracic aorta. No mediastinal mass or lymphadenopathy. UPPER ABDOMEN: No acute findings MUSCULOSKELETAL: Nonspecific contained fluid around the right shoulder, likely bursitis. Similar finding to a lesser extent of the left shoulder. Severe degenerative changes of the thoracolumbar spine with upper lumbar spine and lower thoracic spine fusion. IMPRESSION: Several small focal areas of bronchiolitis in the right upper and right lower lobe, likely infectious bronchiolitis. A dominant nodule with smaller surrounding nodules is in the right upper lung measuring 1.2 x 0.8 cm and should be followed by CT of the chest in 3 months. Signed by: Dr. Lila Martines M.D. on 03/25/2018 8:25 PM
[2018-03-25] MEDS: ONDANSETRON HCL INJ 2 MG/ML VIAL IV PRN (22:01)
[2018-03-25] MEDS: ALPRAZOLAM 0.5 MG TAB PO PRN (22:02)
[2018-03-25] MEDS: SIMVASTATIN 40 MG TAB PO SCH (22:08)
[2018-03-25] MEDS: QUETIAPINE FUMARATE 25 MG TAB PO SCH (22:08)
[2018-03-26] VITALS (8 sets, daily range): BP systolic 117–157; BP diastolic 56–77
[2018-03-26] MEDS: PIPER-TAZ 3.375 GM 50 ML IV SCH ×4 (00:20→17:21)
[2018-03-26] MEDS: ALBUTEROL/IPRATROPIUM 3 ML NEB NEB SCH ×4 (01:00→19:54)
[2018-03-26] MEDS: SODIUM CHLORIDE 0.9% 1000ML 1,000 ML IV SCH ×3 (01:16→17:47)
[2018-03-26] MEDS: TRAMADOL HCL 50 MG TAB PO PRN (05:04)
[2018-03-26] MEDS: GABAPENTIN 300 MG CAP PO SCH ×2 (08:29→16:58)
[2018-03-26] MEDS: HYDRALAZINE HCL 25 MG TAB PO SCH ×3 (08:29→20:34)
[2018-03-26] MEDS: AMLODIPINE BESYLATE 5 MG TAB PO SCH (08:30)
[2018-03-26] MEDS: SERTRALINE HCL 50 MG TAB PO SCH (08:31)
[2018-03-26] MEDS ORDERED: NON-FORMULARY MEDICATION (Felodipine (Felodipine Er) 10 MG) PO SCH (09:00)
[2018-03-26] MEDS: AZITHROMYCIN 250MG/NS 100 ML 100 ML IV SCH (09:54)
[2018-03-26] MEDS: ASPIRIN 81 MG ENTERIC COATED PO SCH (09:55)
[2018-03-26] MEDS: QUETIAPINE FUMARATE 25 MG TAB PO SCH (21:45)
[2018-03-26] MEDS: SIMVASTATIN 40 MG TAB PO SCH (21:45)
[2018-03-26] MEDS: ALPRAZOLAM 0.5 MG TAB PO PRN (21:49)
[2018-03-27] VITALS: BP 134/60
[2018-03-27] MEDS: PIPER-TAZ 3.375 GM 50 ML IV SCH ×3 (00:10→18:50)
[2018-03-27 04:00] VITALS: BP 133/78
[2018-03-27] MEDS: SODIUM CHLORIDE 0.9% 1000ML 1,000 ML IV SCH (05:47)
[2018-03-27] MEDS: TRAMADOL HCL 50 MG TAB PO PRN (06:54)
[2018-03-27] MEDS: ALBUTEROL/IPRATROPIUM 3 ML NEB NEB SCH ×3 (07:00→21:00)
[2018-03-27 08:00] VITALS: BP 153/68
[2018-03-27 08:45] VITALS: BP 153/68
[2018-03-27] MEDS: GABAPENTIN 300 MG CAP PO SCH ×2 (08:45→18:50)
[2018-03-27] MEDS: SERTRALINE HCL 50 MG TAB PO SCH (08:45)
[2018-03-27] MEDS: HYDRALAZINE HCL 25 MG TAB PO SCH ×3 (08:45→20:19)
[2018-03-27] MEDS: ASPIRIN 81 MG ENTERIC COATED PO SCH (08:45)
[2018-03-27] MEDS: AMLODIPINE BESYLATE 5 MG TAB PO SCH (08:45)
[2018-03-27 09:15] LABS: BASOPHILS % 0.6 % (0.0-1.0); EOSINOPHILS # (AUTO) 0.1 (0.0-0.4); EOSINOPHILS % 2.2 % (0.0-6.0); HEMATOCRIT 26.4 % (34.2-44.1); LYMPHOCYTES # (AUTO) 0.4 (1.0-3.2); LYMPHOCYTES % 11.7 % (18.0-39.1); MEAN CORPUSCULAR HEMOGLOBIN 39.8 pg (28-32); MEAN CORPUSCULAR HGB CONC 34.1 g/dL (31-35); MEAN CORPUSCULAR VOLUME 116.8 fL (81-99); MONOCYTES # (AUTO) 0.3 (0.2-0.8); MONOCYTES % 9.8 % (4.4-11.3); NEUTROPHILS # (AUTO) 2.4 (2.1-6.9); NEUTROPHILS % 75.1 % (38.7-80.0); PLATELET COUNT 304 x10e3/uL (140-360); RED BLOOD COUNT 2.26 x10e6/uL (3.6-5.1); RED CELL DISTRIBUTION WIDTH 15.4 % (11.7-14.4)
[2018-03-27] MEDS: ONDANSETRON HCL INJ 2 MG/ML VIAL IV PRN (09:15)
[2018-03-27 09:41] LABS: ANION GAP 10.3 mmol/L (8-16); CALCIUM 8.8 mg/dL (8.4-10.2); CREATININE, SERUM 0.89 mg/dL (0.57-1.11); POTASSIUM 3.3 mmol/L (3.5-5.1)
[2018-03-27] MEDS: AZITHROMYCIN 250MG/NS 100 ML 100 ML IV SCH (10:15)
[2018-03-27] MEDS: ALPRAZOLAM 0.5 MG TAB PO PRN (11:50)
[2018-03-27 16:00] VITALS: BP 147/66
[2018-03-27] MEDS: HYDROXYUREA 500 MG CAPSULE PO SCH (18:50)
[2018-03-27 20:05] VITALS: BP 147/66
[2018-03-27] MEDS: LORAZEPAM INJ 2 MG/ML VIAL IV PRN (20:15)
[2018-03-27] MEDS: QUETIAPINE FUMARATE 25 MG TAB PO SCH (20:19)
[2018-03-27] MEDS: SIMVASTATIN 40 MG TAB PO SCH (20:19)
[2018-03-28] VITALS (7 sets, daily range): BP systolic 129–166; BP diastolic 59–77
[2018-03-28] MEDS: ALBUTEROL/IPRATROPIUM 3 ML NEB NEB SCH ×4 (01:00→19:35)
[2018-03-28] MEDS: PIPER-TAZ 3.375 GM 50 ML IV SCH ×2 (05:38→18:38)
[2018-03-28] MEDS: COLLAGENASE 5 GM TUBE TOP SCH (09:20)
[2018-03-28] MEDS: HYDROXYUREA 500 MG CAPSULE PO SCH ×2 (09:20→17:00)
[2018-03-28] MEDS: AMLODIPINE BESYLATE 5 MG TAB PO SCH (09:20)
[2018-03-28] MEDS: ASPIRIN 81 MG ENTERIC COATED PO SCH (09:20)
[2018-03-28] MEDS: SERTRALINE HCL 50 MG TAB PO SCH (09:20)
[2018-03-28] MEDS: HYDRALAZINE HCL 25 MG TAB PO SCH ×3 (09:20→21:30)
[2018-03-28] MEDS: LORAZEPAM INJ 2 MG/ML VIAL IV PRN ×2 (13:30→21:40)
[2018-03-28] MEDS: GABAPENTIN 100 MG CAP PO SCH (18:38)
[2018-03-28] MEDS: QUETIAPINE FUMARATE 25 MG TAB PO SCH (21:30)
[2018-03-28] MEDS: SIMVASTATIN 40 MG TAB PO SCH (21:30)
[2018-03-28] MEDS: ONDANSETRON HCL INJ 2 MG/ML VIAL IV PRN (21:46)
[2018-03-29] VITALS (7 sets, daily range): BP systolic 127–166; BP diastolic 58–77
[2018-03-29] MEDS: ALBUTEROL/IPRATROPIUM 3 ML NEB NEB SCH ×4 (00:01→19:46)
[2018-03-29] MEDS: PIPER-TAZ 3.375 GM 50 ML IV SCH ×2 (05:51→18:00)
[2018-03-29 05:59] LABS: BASOPHILS % 0.7 % (0.0-1.0); EOSINOPHILS # (AUTO) 0.1 (0.0-0.4); EOSINOPHILS % 2.6 % (0.0-6.0); HEMATOCRIT 24.3 % (34.2-44.1); HEMOGLOBIN 8.4 g/dL (12.0-16.0); LYMPHOCYTES # (AUTO) 0.5 (1.0-3.2); LYMPHOCYTES % 10.4 % (18.0-39.1); MEAN CORPUSCULAR HEMOGLOBIN 39.3 pg (28-32); MEAN CORPUSCULAR HGB CONC 34.6 g/dL (31-35); MEAN CORPUSCULAR VOLUME 113.6 fL (81-99); MONOCYTES # (AUTO) 0.6 (0.2-0.8); NEUTROPHILS # (AUTO) 3.4 (2.1-6.9); NEUTROPHILS % 72.9 % (38.7-80.0); PLATELET COUNT 307 x10e3/uL (140-360); RED BLOOD COUNT 2.14 x10e6/uL (3.6-5.1); RED CELL DISTRIBUTION WIDTH 14.9 % (11.7-14.4)
[2018-03-29 06:17] LABS: ANION GAP 11.9 mmol/L (8-16); BLOOD UREA NITROGEN 9 mg/dL (7-26); BUN/CREATININE RATIO 10 (6-25); CALCIUM 8.9 mg/dL (8.4-10.2); CARBON DIOXIDE 27 mmol/L (22-29); CHLORIDE 101 mmol/L (98-107); CREATININE, SERUM 0.88 mg/dL (0.57-1.11); EST GLOMERULAR FILTRATION RATE > 60 ML/MIN (60-); GLUCOSE 76 mg/dL (74-118); SODIUM 137 mmol/L (136-145)
[2018-03-29 06:33] LABS: POTASSIUM 2.9 mmol/L (3.5-5.1)
[2018-03-29] MEDS: GABAPENTIN 100 MG CAP PO SCH ×2 (08:59→18:00)
[2018-03-29] MEDS: POTASSIUM CHLORIDE 10MEQ EA PO SCH ×2 (08:59→15:11)
[2018-03-29] MEDS: HYDRALAZINE HCL 25 MG TAB PO SCH ×3 (08:59→21:35)
[2018-03-29] MEDS: HYDROXYUREA 500 MG CAPSULE PO SCH ×2 (08:59→18:00)
[2018-03-29] MEDS: SENNOSIDES 8.6 MG TAB PO SCH ×2 (08:59→17:00)
[2018-03-29] MEDS: SERTRALINE HCL 50 MG TAB PO SCH (08:59)
[2018-03-29] MEDS: AMLODIPINE BESYLATE 5 MG TAB PO SCH (08:59)
[2018-03-29] MEDS: AZITHROMYCIN 250 MG TAB PO SCH (08:59)
[2018-03-29] MEDS: CYANOCOBALAMIN INJ 1,000 MCG/ML VIAL IM SCH ×2 (08:59→09:00)
[2018-03-29] MEDS: TRAMADOL HCL 50 MG TAB PO PRN (09:17)
[2018-03-29] MEDS: COLLAGENASE 5 GM TUBE TOP SCH (15:12)
[2018-03-29] MEDS ORDERED: WATER STERILE 10 ML VIAL INJ PRN (17:00)
[2018-03-29] MEDS: SIMVASTATIN 40 MG TAB PO SCH (21:35)
[2018-03-29] MEDS: QUETIAPINE FUMARATE 25 MG TAB PO SCH (21:35)
[2018-03-30] VITALS: BP 161/72
[2018-03-30] MEDS: TRAMADOL HCL 50 MG TAB PO PRN ×2 (00:31→10:46)
[2018-03-30] MEDS: ALBUTEROL/IPRATROPIUM 3 ML NEB NEB SCH ×3 (03:10→14:00)
[2018-03-30 05:15] VITALS: BP 137/64
[2018-03-30 05:41] LABS: BASOPHILS % 0.4 % (0.0-1.0); EOSINOPHILS # (AUTO) 0.2 (0.0-0.4); EOSINOPHILS % 3.5 % (0.0-6.0); HEMATOCRIT 24.8 % (34.2-44.1); HEMOGLOBIN 8.5 g/dL (12.0-16.0); LYMPHOCYTES # (AUTO) 0.6 (1.0-3.2); LYMPHOCYTES % 10.1 % (18.0-39.1); MEAN CORPUSCULAR HEMOGLOBIN 39.2 pg (28-32); MEAN CORPUSCULAR HGB CONC 34.3 g/dL (31-35); MEAN CORPUSCULAR VOLUME 114.3 fL (81-99); MONOCYTES # (AUTO) 0.6 (0.2-0.8); NEUTROPHILS # (AUTO) 4.1 (2.1-6.9); NEUTROPHILS % 74.6 % (38.7-80.0); PLATELET COUNT 301 x10e3/uL (140-360); RED BLOOD COUNT 2.17 x10e6/uL (3.6-5.1)
[2018-03-30 06:03] LABS: MAGNESIUM 2.1 MG/DL (1.3-2.1); PHOSPHORUS 2.6 MG/DL (2.3-4.7)
[2018-03-30] MEDS: PIPER-TAZ 3.375 GM 50 ML IV SCH (06:05)
[2018-03-30 06:35] LABS: ANION GAP 12.5 mmol/L (8-16); BLOOD UREA NITROGEN 8 mg/dL (7-26); BUN/CREATININE RATIO 10 (6-25); CALCIUM 8.6 mg/dL (8.4-10.2); CARBON DIOXIDE 24 mmol/L (22-29); CHLORIDE 104 mmol/L (98-107); CREATININE, SERUM 0.81 mg/dL (0.57-1.11); EST GLOMERULAR FILTRATION RATE > 60 ML/MIN (60-); GLUCOSE 72 mg/dL (74-118); POTASSIUM 4.5 mmol/L (3.5-5.1); SODIUM 136 mmol/L (136-145)
[2018-03-30] MEDS: GABAPENTIN 100 MG CAP PO SCH (06:46)
[2018-03-30 07:43] VITALS: BP 147/65
[2018-03-30] MEDS: SENNOSIDES 8.6 MG TAB PO SCH (09:00)
[2018-03-30] MEDS: CYANOCOBALAMIN INJ 1,000 MCG/ML VIAL IM SCH (09:20)
[2018-03-30] MEDS: ONDANSETRON HCL INJ 2 MG/ML VIAL IV PRN (09:24)
--- NOTE | 2018-03-30 10:05 | Discharge Summary ---
FINAL DIAGNOSES 1. Hypoxic encephalopathy, resolved. 2. Baseline dementia with behavior disturbances. 3. Pernicious anemia with B12 deficiency. 4. Urinary tract infection, resolving. 5. Electrolyte disorder, corrected. SUMMARY: This is an 87-year-old female who came in with agitation and very confused. Found out that the patient basically had multiple tests done that showed that she has a small area of bronchiolitis in the right upper lobe and right lower lobe. She also has a small surrounding nodule in right upper lobe measuring 1.2 x [address] of chest in approximately 3 months recommended. Patient is stable. She was treated for infection. She did much better. The patient is back to her baseline at this time with dementia, but her behavior is much improved. She had a workup done showed that she does have B12 deficiency anemia. Her B12 level was 342. She does have a large MCG of 117. The patient is anemic. Hemoglobin and hematocrit of 8.5 and 24. No GI bleed. Patient is stable. Blood culture with no growth. Urine culture final with no gross as well. Patient was treated for bronchiolitis and pneumonia. The patient is stable now. She is off antibiotics. She is comfortable. She is feeding herself. The patient will go back to her senior living medication. Reconciliation is done. The patient is stable. She will continue to use her nasal cannula. CT of the chest without contrast ordered for approximately 2 weeks to follow up her pulmonary nodule. Job#: [id number] [place]
[2018-03-30] MEDS: HYDROXYUREA 500 MG CAPSULE PO SCH (10:15)
[2018-03-30] MEDS: SERTRALINE HCL 50 MG TAB PO SCH (10:15)
[2018-03-30] MEDS: HYDRALAZINE HCL 25 MG TAB PO SCH (10:15)
[2018-03-30] MEDS: AZITHROMYCIN 250 MG TAB PO SCH (10:15)
[2018-03-30] MEDS: AMLODIPINE BESYLATE 5 MG TAB PO SCH (10:15)
[2018-03-30] MEDS: COLLAGENASE 5 GM TUBE TOP SCH (10:42)
[2018-03-30 12:09] VITALS: BP 133/60
== END 2018-03-30 14:38 | DRG 196 ==
LOC: ER 14:42 → ERHOLD 17:04 → MED/SURG 20:16 → OBSVTOIN 03-25 09:51
PROVIDERS: ADMIT Internal Medicine; ATTEND Internal Medicine
DX: J84.89 Other specified interstitial pulmonary diseases (principal); J18.9 Pneumonia, unspecified organism; G92 Toxic encephalopathy; J44.1 Chronic obstructive pulmonary disease with (acute) exacerbation; D51.0 Vitamin B12 deficiency anemia due to intrinsic factor deficiency; E78.5 Hyperlipidemia, unspecified; I11.0 Hypertensive heart disease with heart failure; I50.9 Heart failure, unspecified; F03.90 Unspecified dementia, unspecified severity, without behavioral disturbance, psychotic disturbance, mood disturbance, and anxiety; E87.8 Other disorders of electrolyte and fluid balance, not elsewhere classified; K21.9 Gastro-esophageal reflux disease without esophagitis; K44.9 Diaphragmatic hernia without obstruction or gangrene; K57.90 Diverticulosis of intestine, part unspecified, without perforation or abscess without bleeding; M19.90 Unspecified osteoarthritis, unspecified site; Z87.891 Personal history of nicotine dependence; R91.1 Solitary pulmonary nodule; I73.9 Peripheral vascular disease, unspecified; G62.9 Polyneuropathy, unspecified; F41.9 Anxiety disorder, unspecified; Z79.82 Long term (current) use of aspirin; Z88.2 Allergy status to sulfonamides
CPT/HCPCS: 36415; 51700; 70450; 71250; 74177; 80048; 80053; 81001; 82140; 82550; 82553; 82607; 83605; 83690; 83735; 84100; 84425; 84436; 84443; 84479; 84484; 85025; 86592; 87040; 87086; 87400; 93005; 94640; 96361; 96372; 99284; G0378; J0360; J2060; J2405; J2543; J3420; J7030; Q9967